=== PATIENT | male | born 1990 | race Caucasian/White ===

== ENCOUNTER → 2017-03-04 | Outpatient (CLI) | payer OTHER ==
--- NOTE | 2017-03-04 15:14 | DI ---
Indication: [email or web address]: DIAGNOSTIC TESTING PROCEDURE: CERVICAL SPINE 4 OR 5 VIEWS: Encounter: Initial Comparison: None Findings: Alignment of the cervical spine is normal. No acute fracture or subluxation. The vertebral body heights and disk spaces are maintained. Oblique views show no evidence of bony neural foraminal stenosis. Impression: Normal exam .
--- NOTE | 2017-03-04 15:14 | DI ---
Indication: [email or web address]: DIAGNOSTIC TESTING PROCEDURE: THORACIC SPINE 2 VIEW: Encounter: Initial Comparison: None Findings: Alignment of the thoracic spine is normal. No acute fracture or subluxation seen. The vertebral body heights and disk spaces are maintained. Impression: No acute osseous abnormality. .
--- NOTE | 2017-03-04 15:15 | DI ---
Indication: [email or web address]: DIAGNOSTIC TESTING PROCEDURE: SACRUM COCCYX: Encounter: Initial Comparison: None Findings: No acute displaced sacrococcygeal fracture identified. Sacroiliac joints and pubic symphysis appear normal. Impression: No acute osseous abnormality. .
--- NOTE | 2017-03-04 15:15 | DI ---
Indication: [email or web address]: DIAGNOSTIC TESTING PROCEDURE: LUMBAR SPINE 3 VIEWS: Encounter: Initial Comparison: None Findings: No acute fracture or subluxation seen. The vertebral body heights and disk spaces are maintained. No significant degenerative change. Impression: No acute osseous abnormality. .
--- NOTE | 2017-03-04 15:26 | DI ---
Indication: [email or web address]: DIAGNOSTIC TESTING PROCEDURE: ANKLE LEFT 2 VIEW: Encounter: Initial Comparison: None Findings: There is no acute fracture, dislocation or malalignment identified. Impression: No acute osseous abnormality. .
--- NOTE | 2017-03-04 15:26 | DI ---
Indication: [email or web address]: DIAGNOSTIC TESTING PROCEDURE: KNEE LEFT 2 VIEW: Encounter: Initial Comparison: None Findings: There is no acute fracture, dislocation or malalignment identified. Mild lateral compartment joint space narrowing. Impression: No acute osseous abnormality. .
--- NOTE | 2017-03-04 15:27 | DI ---
Indication: [email or web address]: DIAGNOSTIC TESTING PROCEDURE: ANKLE RIGHT 2 VIEW: Encounter: Initial Comparison: None Findings: There is no acute fracture, dislocation or malalignment identified. Impression: No acute osseous abnormality. .
--- NOTE | 2017-03-04 15:27 | DI ---
Indication: [email or web address]: DIAGNOSTIC TESTING PROCEDURE: KNEE RIGHT 2 VIEW: Encounter: Initial Comparison: None Findings: There is no acute fracture, dislocation or malalignment identified. Impression: No acute osseous abnormality. .
== END ==
LOC: IMA 14:07
DX: Z02.9 Encounter for administrative examinations, unspecified (principal)